=== PATIENT | female | born 1995 | race Caucasian/White ===

== ENCOUNTER 2017-01-16 01:56 | Emergency (ER) | payer MEDICAID, OTHER ==
[~2017-01-16] VITALS: Ht 165.1 cm; Wt 110.0 kg
[~2017-01-16 01:56] MED LIST: ALPR1TAB2 PO; BACTDS PO; CEPH-443 PO; IBUP-1542 PO; NO MEDS TAKEN; RANI150T9 PO; SUCR1TAB PO; [UNRECOGNIZED DRUG - REMARK]
[2017-01-16 02:05] VITALS: Ht 165.1 cm; Wt 110.0 kg
[2017-01-16] MEDS ORDERED: ONDANSETRON 4 MG INJ IV STA (04:21)
[2017-01-16] MEDS ORDERED: FAMOTIDINE 20 MG TAB PO STA (04:21)
--- NOTE | 2017-01-16 04:29 | ERD ---
ER Documentation Chief Complaint Date/Time DATE: 01/16/17 TIME: 04:27 Chief Complaint chest/back pain after vomiting. "Cold virus" for two weeks. HPI Patient is a 21-year-old female who reports epigastric abdominal pain radiating to her chest for the last 2 days. She states that when she eats this causes the pain to be worse and it causes her to have vomiting. She also states that occasionally the pain radiates through to her back. She has also felt feverish with chills but has not checked her temperature. She also complains of a cough with congestion and sputum production which has been yellowish in color. She has had some clear rhinorrhea but no sore throat or otalgia. She denies any sick contacts. Denies any diarrhea, dysuria, hematuria, vaginal bleeding, or vaginal discharge. She states nothing seems to make her symptoms better. She denies having experienced these symptoms before. But then tells me she has had gastritis previously. The remainder of the systems are negative. ROS All systems reviewed and are negative except as per history of present illness. Medications Home Meds Active Scripts Ibuprofen* (Motrin*) 600 Mg Tab, 600 MG PO Q6H Y for PAIN AND OR ELEVATED TEMP, #30 TAB Prov:GEORGIE WILSON NP 06/29/16 Cephalexin* (Keflex*) 500 Mg Capsule, 500 MG PO QID for 10 Days, CAP Prov:GEORGIE WILSON NP 06/29/16 Sulfamethoxazole-Trimethoprim* (Bactrim* DS) 800-160 Mg Tab, 1 TAB PO BID for 10 Days, TAB Prov:GEORGIE WILSON NP 06/29/16 Alprazolam* (Xanax*) 1 Mg Tab, 1 MG PO Q8H Y for ANXIETY, #10 TAB Prov:GEORGIE WILSON NP 05/20/16 Sucralfate (Carafate) 1 G Tablet, 1 GM PO QID, #60 TAB Prov:UMAIR MACIEL 09/22/15 Ranitidine Hcl* (Zantac*) 150 Mg Tablet, 150 MG PO BID Y for GASTROINTESTINAL UPSET, #30 TAB Prov:UMAIR MACIEL 09/22/15 Reported Medications [mom denies meds & allergies] No Conflict Check 2/8/14 [None] No Conflict Check 03/05/13 [No Meds Taken] No Conflict Check 02/14/12 Allergies Allergies: Coded Allergies: No Known Allergy (Unverified , 12/25/13) PMhx/Soc Medical and Surgical Hx: pt denies Surgical Hx History of Surgery: No Anesthesia Reaction: No Hx Neurological Disorder: No Hx Respiratory Disorders: Yes (ASTHMA) Hx Cardiac Disorders: No Hx Psychiatric Problems: Yes (ANXIETY) Hx Miscellaneous Medical Probl: Yes (fatty liver, gastritis) Hx Alcohol Use: No Hx Substance Use: No Hx Tobacco Use: No Smoking Status: Never smoker FmHx Family History: diabetes Physical Exam Vitals Vital Signs Date Time Temp Pulse Resp B/P Pulse Ox O2 Delivery O2 Flow Rate FiO2 01/16/17 05:51 97.5 78 16 109/59 99 Room Air 01/16/17 02:05 97.9 89 16 120/80 96 Physical Exam Const: [] Well-developed well-nourished female sitting in bed in no acute distress Head: Atraumatic normocephalic Eyes: Normal Conjunctiva ENT: Normal External Ears, Nose and Mouth. Neck: Full range of motion..~ No meningismus. Resp: Clear to auscultation bilaterally Cardio: Regular rate and rhythm, no murmurs Abd: Soft, mild tenderness to palpation in epigastric region, no masses, no rebound, no guarding, non distended. Normal bowel sounds Skin: No petechiae or rashes Back: No midline or flank tenderness Ext: No cyanosis, or edema Neur: Awake and alert, oriented 3, GCS of 15, moves all extremities equally Psych: Normal Mood and Affect Result Diagram: 01/16/1740901/16/17409 Results 24 hrs Laboratory Tests Test 01/16/17 04:10 Alanine Aminotransferase (ALT/SGPT) 62IU/L Albumin 4.2g/dl Albumin/Globulin Ratio 1.07 Alkaline Phosphatase 255IU/L Anion Gap 19 Aspartate Amino Transf (AST/SGOT) 46IU/L Basophils # 0.110^3/ul Basophils % 0.6% Beta HCG, Quantitative < 2.4mIU/ml Blood Urea Nitrogen 8mg/dl Calcium Level 9.3mg/dl Carbon Dioxide Level 27mmol/L Chloride Level 102mmol/L Creatinine 0.51mg/dl Direct Bilirubin 0.00mg/dl Eosinophils # 0.210^3/ul Eosinophils % 2.5% Globulin 3.90g/dl Glucose Level 94mg/dl Hematocrit 43.6% Hemoglobin 14.7g/dl Indirect Bilirubin 0.2mg/dl Lipase 73U/L Lymphocytes # 2.810^3/ul Lymphocytes % 33.4% Mean Corpuscular Hemoglobin 28.3pg Mean Corpuscular Hemoglobin Concent 33.7g/dl Mean Corpuscular Volume 84.0fl Mean Platelet Volume 11.6fl Monocytes # 0.710^3/ul Monocytes % 8.5% Neutrophils # 4.710^3/ul Neutrophils % 54.8% Nucleated Red Blood Cells # 0.010^3/ul Nucleated Red Blood Cells % 0.0/100WBC Platelet Count 76973^3/UL Potassium Level 3.9mmol/L Red Blood Count 5.1910^6/ul Red Cell Distribution Width 12.7% Sodium Level 144mmol/L Total Bilirubin 0.2mg/dl Total Protein 8.1g/dl Urine Bilirubin NEGATIVE Urine Clarity CLEAR Urine Color LT. YELLOW Urine Glucose NEGATIVE% Urine Hemoglobin 2+ Urine Ketones NEGATIVE Urine Leukocyte Esterase NEGATIVE Urine Microscopic RBC 5-10/HPF Urine Microscopic WBC 0-2/HPF Urine Nitrite NEGATIVE Urine Specific [place] 1.010 Urine Squamous Epithelial Cells MODERATE Urine Total Protein NEGATIVE Urine Urobilinogen 0.2 E.U./dL Urine pH 6.5 White Blood Count 8.510^3/ul Current Medications Medications (Trade) Dose Ordered Sig/Anu Route PRN Reason Start Time Stop Time Status Last Admin Dose Admin Ondansetron HCl (Zofran Inj) 4 mg ONCE STAT IV 01/16/17 04:21 01/16/17 04:23 DC 01/16/17 04:39 Famotidine (Pepcid) 20 mg ONCE STAT PO 01/16/17 04:21 01/16/17 04:23 DC 01/16/17 04:39 Procedures/MDM Differential includes but is not limited to gastritis, reflux, ulcer, gastroenteritis, nonspecific abdominal pain, atypical chest pain, esophagitis, bronchitis, pneumonia, viral syndrome, upper respiratory illness EKG shows normal sinus rhythm at approximately 85 beats per minutes, patient has mild OR prolongation first-degree, no evidence of acute ischemia noted, no ST-T wave changes noted, no old EKG available for comparison. Chest x-ray does not reveal any acute cardiopulmonary process pulmonary Patient's lab work is within normal limits which includes a CBC CMP lipase hCG. At this time her pain is improved. She appears stable for discharge home. She may follow-up with her primary care physician as an outpatient for reevaluation. Departure Diagnosis: Primary Impression: Abdominal pain Abdominal location: epigastric Qualified Code: R10.13 - Epigastric pain Additional Impressions: Upper respiratory infection, viral Gastritis Gastritis type: unspecified gastritis Chronicity: acute Gastritis bleeding : without bleeding Qualified Code: K29.00 - Acute gastritis without hemorrhage, unspecified gastritis type Condition: Good Patient Instructions: Abdominal Pain, Gastritis Vs. Ulcer Additional Instructions: Please take the medications as prescribed and schedule a follow-up appointment with your primary care physician for reevaluation in approximately 2-3 days. If your abdominal pain continues he may need to schedule an appointment with a photoengraving sketch maker for reevaluation as well. Avoid high fat or spicy foods as this may aggravate your abdominal pain. Return to the emergency department if any time he develop any new or worsening symptoms. KAMI MCKEON Jan 16, 2017 04:29
--- NOTE | 2017-01-16 04:50 | RADRPT ---
PROCEDURE: CHEST - 1 VIEW CLINICAL INDICATION: 21-year-old female with chest/abdominal pain. TECHNIQUE: A single frontal AP view of the chest was performed. The images were reviewed on a PAC S workstation. COMPARISON: Chest x-ray January 10, 2015. FINDINGS: The cardiomediastinal silhouette has a normal appearance. There is no evidence for an infiltrate. T he pulmonary vascularity is within normal limits. There is no evidence for pneumothorax or pneumomed iastinum. The osseous structures are intact. IMPRESSION: No evidence for active cardiopulmonary disease. .Wally Monk MD, MD Date Time Electronically viewed and signed by .Wally Monk MD, MD on 01/16/2017 04:49 .Kisha/
[2017-01-16 04:53] LABS: ADD SCAN DIFF NO
[2017-01-16 05:05] LABS: ALBUMIN 4.2 g/dl (3.3-4.9)
[2017-01-16 05:06] LABS: POTASSIUM 3.9 mmol/L (3.5-5.1)
[2017-01-16 05:08] LABS: BASOPHIL # 0.1 10^3/ul (0.0-0.1); BASOPHILS % 0.6 % (0.0-2.0); BILIRUBIN,INDIRECT 0.2 mg/dl (0-1.1); BILIRUBIN,TOTAL 0.2 mg/dl (0.2-1.3); CREATININE 0.51 mg/dl (0.44-1.00); EOSINOPHILS # 0.2 10^3/ul (0.0-0.5); EOSINOPHILS % 2.5 % (0.0-7.0); HEMATOCRIT 43.6 % (37.0-47.0); HEMOGLOBIN 14.7 g/dl (12.0-16.0); LYMPHOCYTES # 2.8 10^3/ul (0.8-2.9); LYMPHOCYTES % 33.4 % (18.0-55.0); MEAN CORPUSCULAR HEMOGLOBIN 28.3 pg (29.0-33.0); MEAN CORPUSCULAR HGB CONC 33.7 g/dl (32.0-37.0); MEAN PLATELET VOLUME 11.6 fl (7.4-10.4); MONOCYTE # 0.7 10^3/ul (0.3-0.9); MONOCYTES % 8.5 % (0.0-13.0); NEUTROPHIL # 4.7 10^3/ul (1.6-7.5); NEUTROPHILS % 54.8 % (30.0-74.0); PLATELET COUNT 304 10^3/UL (140-415); RED BLOOD COUNT 5.19 10^6/ul (4.20-5.40); RED CELL DISTRIBUTION WIDTH 12.7 % (11.5-14.5); WHITE BLOOD COUNT 8.5 10^3/ul (4.8-10.8)
[2017-01-16 05:09] LABS: ALBUMIN/GLOBULIN RATIO 1.07; CALCIUM 9.3 mg/dl (8.4-10.2); TOTAL PROTEIN 8.1 g/dl (6.1-8.1)
[2017-01-16 05:10] LABS: ADD UMIC YES; URINE BILIRUBIN (Dip) NEGATIVE (NEGATIVE); URINE BLOOD (Dip) 2+ (NEGATIVE); URINE COLOR LT. YELLOW (YELLOW); URINE GLUCOSE (Dip) NEGATIVE (NEGATIVE); URINE KETONES (Dip) NEGATIVE (NEGATIVE); URINE LEUKOCYTE ESTERASE (Dip) NEGATIVE (NEGATIVE); URINE NITRITE (Dip) NEGATIVE (NEGATIVE); URINE TOTAL PROTEIN (Dip) NEGATIVE (NEGATIVE); URINE UROBILINOGEN (Dip) 0.2 E.U./dL (0.1-1.0)
[2017-01-16 05:21] LABS: SQUAMOUS EPITHELIAL CELL,UR MODERATE
[2017-01-16 05:51] VITALS: BP 109/59; PULSE 78; RESP 16; TEMP 97.5
[2017-01-16] MEDS ORDERED: PANT40TA3 PO (06:10)
[2017-01-16] MEDS ORDERED: ONDA4TAB8 PO (06:11)
[2017-01-16] MEDS ORDERED: SUCR1TAB56 PO (06:11)
[2017-01-16] MEDS ORDERED: BENZ100C70 PO (06:12)
[2017-01-16] MEDS ORDERED: HYDR473S12 PO (06:12)
== END 2017-01-16 06:52 | disposition home or self-care (01) ==
LOC: E/R 01:56
DX: R10.13 Epigastric pain (principal); R40.2252 Coma scale, best verbal response, oriented, at arrival to emergency department; J06.9 Acute upper respiratory infection, unspecified; K29.00 Acute gastritis without bleeding; R11.10 Vomiting, unspecified; J45.909 Unspecified asthma, uncomplicated; R40.2362 Coma scale, best motor response, obeys commands, at arrival to emergency department; R40.2142 Coma scale, eyes open, spontaneous, at arrival to emergency department
CPT/HCPCS: 36415; 71010; 80053; 81001; 83690; 84702; 85025; 93005; 96374; J2405; Z7502; Z7610; 81003

== ENCOUNTER 2017-01-20 12:20 | Emergency (ER) | payer OTHER ==
[~2017-01-20] VITALS: Ht 167.6 cm; Wt 110.0 kg
[~2017-01-20 12:20] MED LIST changes: +BENZ100C70 PO; +HYDR473S12 PO; +ONDA4TAB8 PO; +PANT40TA3 PO; +SUCR1TAB56 PO
[2017-01-20 12:46] VITALS: Ht 167.6 cm; Wt 110.0 kg
[2017-01-20] MEDS ORDERED: ONDANSETRON 4 MG INJ IV STA ×2 (14:38→17:05)
[2017-01-20] MEDS ORDERED: SOD CHLORIDE 0.9% 1,000 ML IV STA (14:38)
[2017-01-20 15:02] LABS: ADD SCAN DIFF NO
[2017-01-20 15:19] LABS: ALBUMIN 4.1 g/dl (3.3-4.9)
[2017-01-20 15:20] LABS: POTASSIUM 3.6 mmol/L (3.5-5.1)
[2017-01-20 15:21] LABS: CREATININE 0.52 mg/dl (0.44-1.00)
[2017-01-20 15:22] LABS: ALBUMIN/GLOBULIN RATIO 0.91; BILIRUBIN,INDIRECT 0.9 mg/dl (0-1.1); BILIRUBIN,TOTAL 0.9 mg/dl (0.2-1.3); CALCIUM 9.3 mg/dl (8.4-10.2); TOTAL PROTEIN 8.6 g/dl (6.1-8.1)
[2017-01-20 15:29] LABS: ABNORMAL IP MESSAGE 1; HEMATOCRIT 43.6 % (37.0-47.0); HEMOGLOBIN 14.9 g/dl (12.0-16.0); MEAN CORPUSCULAR HEMOGLOBIN 28.3 pg (29.0-33.0); MEAN CORPUSCULAR HGB CONC 34.2 g/dl (32.0-37.0); MEAN CORPUSCULAR VOLUME 82.9 fl (72.0-104.0); MEAN PLATELET VOLUME 10.9 fl (7.4-10.4); PLATELET COUNT 301 10^3/UL (140-415); RED BLOOD COUNT 5.26 10^6/ul (4.20-5.40); RED CELL DISTRIBUTION WIDTH 12.4 % (11.5-14.5); WHITE BLOOD COUNT 12.1 10^3/ul (4.8-10.8)
[2017-01-20 16:05] LABS: LYMPHOCYTES # 0.6 10^3/ul (0.8-2.9); NEUTROPHIL # 11.5 10^3/ul (1.6-7.5)
--- NOTE | 2017-01-20 16:26 | RADRPT ---
PROCEDURE: Abdominal Ultrasound (right upper quadrant). CLINICAL INDICATION: Abdominal pain TECHNIQUE: Multiple real-time longitudinal and transverse images of the right upper quadrant of th e abdomen were acquired utilizing a curved array transducer. Images were reviewed on a high-resoluti on PACS workstation. COMPARISON: Abdominal ultrasound 09/22/2015 FINDINGS: The liver is normal in size and echogenicity. The portal vein is patent. No focal masses are identi fied. There is no evidence of intra or extrahepatic ductal dilatation. The common bile duct measur es 2.1 mm in diameter. No gallstones or gallbladder wall thickening is seen. The visualized portions of the pancreas are unremarkable with obscuration of the tail of the pancrea s. No free fluid is identified. There is no evidence of right hydronephrosis or renal calcification. The right kidney measures 10.5 cm in length. The visualized portions of the aorta and inferior vena cava are within normal limits. IMPRESSION: 1. Unremarkable right upper quadrant ultrasound. RPTAT: KK .Roge Martínez MD, Date Time Electronically viewed and signed by .Roge Martínez MD, MD on 01/20/2017 16:25 .B/
[2017-01-20 16:43] LABS: URINE BLOOD (Dip) POC Trace-lysed (NEGATIVE)
[2017-01-20] MEDS ORDERED: morphine 4 MG/ML VIAL IV STA (17:05)
[2017-01-20 17:15] LABS: ADD UMIC YES; URINE BILIRUBIN (Dip) NEGATIVE (NEGATIVE); URINE BLOOD (Dip) TRACE (NEGATIVE); URINE GLUCOSE (Dip) NEGATIVE (NEGATIVE); URINE KETONES (Dip) 40 (NEGATIVE); URINE LEUKOCYTE ESTERASE (Dip) 1+ (NEGATIVE); URINE NITRITE (Dip) NEGATIVE (NEGATIVE); URINE TOTAL PROTEIN (Dip) NEGATIVE (NEGATIVE); URINE UROBILINOGEN (Dip) 0.2 E.U./dL (0.1-1.0)
[2017-01-20 17:33] LABS: URINE COLOR YELLOW (YELLOW)
[2017-01-20 17:34] LABS: BACTERIA,URINE MANY; SQUAMOUS EPITHELIAL CELL,UR MANY; URINE RBCS 0-2 /HPF (0)
--- NOTE | 2017-01-20 18:00 | RADRPT ---
PROCEDURE: CT of the abdomen and pelvis without contrast CLINICAL INDICATION: Epigastric and right lower quadrant pain. TECHNIQUE: Spiral CT images through the abdomen and pelvis without the use of contrast. The admin istered radiation dose is CTDI 16.92 and DLP 960.49. One or more of the following dose reduction te chniques were used: automated exposure control, adjustment of the mA and/or kV according to patient size, or use of iterative reconstruction technique. COMPARISON: Right lower quadrant ultrasound from earlier FINDINGS: Lack of oral and intravenous contrast somewhat limits evaluation. Slight dependent atelectasis of the lung bases is seen. No pleural effusion is seen. The liver, spleen, adrenals, kidneys, and pancreas are unremarkable in appearance. No stones are se en in the kidneys, ureters, or bladder. There is subtle haziness of the fat adjacent to the celiac and superior mesenteric arteries, nonspecific. Tiny fat-containing umbilical hernia is seen.. Ther e is no evidence for bowel obstruction, free air, or abscess. The appendix is normal in appearance. there is no evidence for diverticulitis. The bladder, uterus, and adnexal structures are grossly unremarkable. No adenopathy or ascites is seen. No bony abnormality is seen.. IMPRESSION: No definite acute abnormality of the abdomen or pelvis. RPTAT: [facility] Physician Patrice Date Time Electronically viewed and signed by Physician Patrice on 01/20/2017 18:00 LE/
[2017-01-20] MEDS ORDERED: CIPR500T4 PO (18:16)
[2017-01-20] MEDS ORDERED: ACET325T33 PO (18:16)
[2017-01-20] MEDS ORDERED: ONDA4TAB14 PO (18:16)
[2017-01-20 18:36] VITALS: BP 128/62; PULSE 75; RESP 16; TEMP 98.5
--- NOTE | 2017-01-20 18:39 | ERD ---
ER Documentation Chief Complaint Date/Time DATE: 01/20/17 TIME: 18:36 Chief Complaint BROUGHT IN VIA INTAKE DUE TO SOB AND BACK PAIN HPI This is a 21-year-old female with a history of anxiety and stated history of fatty liver presenting to the emergency department complaining of shortness of breath, lower back pain, nausea, vomiting, diarrhea for the past 2 weeks. Patient is complaining of a few episodes of vomiting, epigastric tenderness, and diarrhea. Patient has a history of anxiety and is complaining of shortness of breath. Patient states that she has been seen here on 16 January and was given medications without any relief. Patient states her last menstrual period September 14. Patient denies any symptoms of dysuria. ROS All systems reviewed and are negative except as per history of present illness. Medications Home Meds Active Scripts Acetaminophen* (Tylenol*) 325 Mg Tablet, 650 MG PO Q4H Y for MILD PAIN LEVEL 1-3 , #20 TAB Prov:GRACIELA PACHECO PA-C 01/20/17 Ondansetron (Ondansetron Odt) 4 Mg Tab.rapdis, 4 MG PO Q6H Y for NAUSEA AND/OR VOMITING, #10 TAB Prov:GRACIELA PACHECO PA-C 01/20/17 Ciprofloxacin Hcl* (Ciprofloxacin Hcl*) 500 Mg Tablet, 500 MG PO BID for 7 Days , TAB Prov:GRACIELA PACHECO PA-C 01/20/17 Benzonatate* (Tessalon Perle*) 100 Mg Capsule, 200 MG PO Q8H Y for COUGH, #20 CAP 0 Refills Prov:KAMI MCKEON 01/16/17 Hydrocodone-Chlorpheniramine Polis* (Hydrocodone-Chlorpheniramine Polis*) 10-8MG /5ML Rachael.er.12h, 5 ML PO Q12H Y for COUGH, #60 ML 0 Refills Prov:KAMI MCKEON 01/16/17 Sucralfate* (Carafate*) 1 Gm Tab, 1 GM PO QID for GASTROINTESTINAL UPSET, #90 TAB 0 Refills Prov:KAMI MCKEON 01/16/17 Ondansetron Hcl* (Zofran*) 4 Mg Tablet, 4 MG PO Q6H for NAUSEA AND/OR VOMITING, #30 TAB 0 Refills Prov:KAMI MCKEON 01/16/17 Pantoprazole* (Protonix*) 40 Mg Tablet.dr, 40 MG PO DAILY, #30 TAB 0 Refills Prov:KAMI MCKEON 01/16/17 Ibuprofen* (Motrin*) 600 Mg Tab, 600 MG PO Q6H Y for PAIN AND OR ELEVATED TEMP, #30 TAB Prov:GEORGIE WILSON NP 06/29/16 Cephalexin* (Keflex*) 500 Mg Capsule, 500 MG PO QID for 10 Days, CAP Prov:GEROGIE WILSON ADDING MACHINE OPERATOR 06/29/16 Sulfamethoxazole-Trimethoprim* (Bactrim* DS) 800-160 Mg Tab, 1 TAB PO BID for 10 Days, TAB Prov:GEORGIE WILSON NP 06/29/16 Alprazolam* (Xanax*) 1 Mg Tab, 1 MG PO Q8H Y for ANXIETY, #10 TAB Prov:GEORGIE WILSON NP 05/20/16 Sucralfate (Carafate) 1 G Tablet, 1 GM PO QID, #60 TAB Prov:UMAIR MACIEL 09/22/15 Ranitidine Hcl* (Zantac*) 150 Mg Tablet, 150 MG PO BID Y for GASTROINTESTINAL UPSET, #30 TAB Prov:UMAIR MACIEL 09/22/15 Reported Medications [mom denies meds & allergies] No Conflict Check 12/29/13 [None] No Conflict Check 03/05/13 [No Meds Taken] No Conflict Check 02/14/12 Allergies Allergies: Coded Allergies: No Known Allergy (Unverified , 12/25/13) PMhx/Soc History of Surgery: No Anesthesia Reaction: No Hx Neurological Disorder: No Hx Respiratory Disorders: Yes (ASTHMA) Hx Cardiac Disorders: No Hx Psychiatric Problems: Yes (ANXIETY) Hx Miscellaneous Medical Probl: Yes (fatty liver, gastritis) Hx Alcohol Use: No Hx Substance Use: No Hx Tobacco Use: No Smoking Status: Never smoker Physical Exam Vitals Vital Signs Date Time Temp Pulse Resp B/P Pulse Ox O2 Delivery O2 Flow Rate FiO2 01/20/17 18:36 98.5 75 16 128/62 98 Room Air 01/20/17 12:46 99.9 109 22 151/76 98 Physical Exam GENERAL: well-developed/well-nourished, in no apparent distress, non-toxic appearing HENT: NC/AT, moist mucous membranes EYES: Conjunctiva normal NECK: Supple, no lymphadenopathy PULM: CTA bilaterally, no rales, rhonchi, or wheezing heard CV: Normal S1S2, RRR, good capillary refill GI: Soft, non-distended, tender to palpation epigastric region Normal bowel sounds, no masses or organomegaly felt on exam No gross peritonitis, no bruits Negative Rovsing, negative Gregg, negative McBurney's point, Negative CVAT BACK: No masses EXT: No clubbing, cyanosis, or edema NEURO: Alert and Orientated SKIN: Intact, normal turgor PSYCH: Normal mood and mentation Result Diagram: 01/20/17 1450 01/20/17 1450 Results 24 hrs Laboratory Tests Test 01/20/17 14:50 01/20/17 16:30 01/20/17 16:46 Alanine Aminotransferase (ALT/SGPT) 71IU/L Albumin 4.1g/dl Albumin/Globulin Ratio 0.91 Alkaline Phosphatase 212IU/L Anion Gap 20 Aspartate Amino Transf (AST/SGOT) 62IU/L Blood Urea Nitrogen 9mg/dl Calcium Level 9.3mg/dl Carbon Dioxide Level 25mmol/L Chloride Level 100mmol/L Creatinine 0.52mg/dl Direct Bilirubin 0.00mg/dl Globulin 4.50g/dl Glucose Level 105mg/dl Hematocrit 43.6% Hemoglobin 14.9g/dl Indirect Bilirubin 0.9mg/dl Lipase 51U/L Lymphocytes # 0.610^3/ul Lymphocytes % 5.0% Mean Corpuscular Hemoglobin 28.3pg Mean Corpuscular Hemoglobin Concent 34.2g/dl Mean Corpuscular Volume 82.9fl Mean Platelet Volume 10.9fl Neutrophils # 11.510^3/ul Neutrophils % 95.0% Platelet Count 61138^3/UL Potassium Level 3.6mmol/L Red Blood Count 5.2610^6/ul Red Cell Distribution Width 12.4% Sodium Level 141mmol/L Total Bilirubin 0.9mg/dl Total Protein 8.6g/dl White Blood Count 12.110^3/ul Urine Bacteria MANY Urine Bilirubin NEGATIVE Urine Clarity CLOUDY Urine Color YELLOW Urine Glucose NEGATIVE% Urine Hemoglobin TRACE Urine Ketones 40 Urine Leukocyte Esterase 1+ Urine Microscopic RBC 0-2/HPF Urine Microscopic WBC 10-25/HPF Urine Nitrite NEGATIVE Urine Specific [place] 1.020 Urine Squamous Epithelial Cells MANY Urine Total Protein NEGATIVE Urine Urobilinogen 0.2 E.U./dL Urine pH 6.0 Bedside Urine Blood Trace-lysed Bedside Urine Glucose (UA) Negative Bedside Urine Ketones (LAB) 2+ Bedside Urine Leukocyte Esterase (L 1+ Bedside Urine Nitrite (LAB) Negative Bedside Urine Protein (LAB) Negative Bedside Urine pH (LAB) 5.5 Current Medications Medications (Trade) Dose Ordered Sig/Anu Route PRN Reason Start Time Stop Time Status Last Admin Dose Admin Sodium Chloride (NS) 1,000 ml @ 1,000 mls/hr Q1H STAT IV 01/20/17 14:38 01/20/17 15:37 DC 01/20/17 14:56 Ondansetron HCl (Zofran Inj) 4 mg ONCE STAT IV 01/20/17 14:38 01/20/17 14:40 DC 01/20/17 14:56 Morphine Sulfate (morphine) 4 mg ONCE STAT IV 01/20/17 17:05 01/20/17 17:06 DC 01/20/17 17:20 Ondansetron HCl (Zofran Inj) 4 mg ONCE STAT IV 01/20/17 17:05 01/20/17 17:06 DC 01/20/17 17:20 Procedures/MDM This is a 21-year-old female with history of anxiety presenting with multiple complaints shortness of breath, epigastric pain, diarrhea, vomiting presenting to the emergency department. Differentials include but not limited to gastroenteritis, gastritis, UTI and other acute abdominal conditions. Patient was seen here on the and was given Carafate and Protonix, without any relief. Patient's new complaint since her last visit was diarrhea. Patient states that her symptoms remained constant. IV access is established. Lab work was drawn. CBC did not show any evidence of significant leukocytosis or anemia. White count was elevated around 12.1 which is likely due to stress reaction. CMP did not show any evidence of significant renal, liver, or electrolyte abnormalities. Lipase was normal. UA did not show any evidence of hemoglobin, patient had +1 leukocyte esterase with 10-25 white count. Patient will be treated for a urinary tract infection outpatient. I have low suspicion for any pyelonephritis, nephrolithiasis. I have reviewed patient's past chart and she had a full workup on 01/16/17 including EKG and chest x-ray which were unremarkable. Patient's lab work was unremarkable a few days ago. A CT of the abdomen and pelvis without contrast was done and radiologist stated: No definite acute abnormality of the abdomen or pelvis. A gallbladder ultrasound was done in the ED and was unremarkable. I will low suspicion for cholecystitis, cholangitis, pancreatitis. Patient's lungs are clear to auscultation bilaterally, low suspicion for pneumonia. In the ED patient was given 1 L fluids, morphine and Zofran. I have reassessed her and she was doing a lot better. Patient appears to be clinically anxious. I have discussed that this is likely due to a viral illness with a urinary tract infection. A prescription for Cipro was provided I discussed the patient to follow-up with her primary care physician and to return to the emergency room for any worsening signs or symptoms. She understands and agrees with this plan. Departure Diagnosis: Primary Impression: Shortness of breath Additional Impressions: Low back pain Chronicity: acute Back pain laterality: unspecified Sciatica presence: without sciatica Qualified Code: M54.5 - Acute low back pain without sciatica , unspecified back pain laterality Nausea vomiting and diarrhea Condition: Stable Patient Instructions: Understanding Urinary Tract Infections (UTIs), Coping with Shortness of Breath: Controlling Stress, Diet, Vomiting Or Diarrhea [6Yr- Adult], Vomiting And Diarrhea, Nonspecific (Adult) Referrals: DOCTOR,NOT ON STAFF (PCP) [facility] YOU HAVE RECEIVED A MEDICAL SCREENING EXAM AND THE RESULTS INDICATE THAT YOU DO NOT HAVE A CONDITION THAT REQUIRES URGENT TREATMENT IN THE EMERGENCY DEPARTMENT. FURTHER EVALUATION AND TREATMENT OF YOUR CONDITION CAN WAIT UNTIL YOU ARE SEEN IN YOUR DOCTORS OFFICE WITHIN THE NEXT 1-2 DAYS. IT IS YOUR RESPONSIBILITY TO MAKE AN APPOINTMENT FOR FOLOW-UP CARE. IF YOU HAVE A PRIMARY DOCTOR --you should call your primary doctor and schedule an appointment IF YOU DO NOT HAVE A PRIMARY DOCTOR YOU CAN CALL OUR PHYSICIAN REFERRAL HOTLINE AT IF YOU CAN NOT AFFORD TO SEE A PHYSICIAN YOU CAN CHOSE FROM THE FOLLOWING [facility] [address] [facility] [address] [facility] [address] [facility] [address] [facility] [address] [facility]. [facility] [address] Additional Instructions: FOLLOW UP WITH YOUR PRIMARY CARE PHYSICIAN TOMORROW.Return to this facility if you are not improving as expected. Take all medicines as directed. Return to this facility if you are not improving as expected. GRACIELA PACHECO PA-C Jan 20, 2017 18:39
== END 2017-01-20 18:37 | disposition home or self-care (01) ==
LOC: FTE 12:20
DX: R06.02 Shortness of breath (principal); M54.5 Low back pain; R11.2 Nausea with vomiting, unspecified; R19.7 Diarrhea, unspecified; J45.909 Unspecified asthma, uncomplicated
CPT/HCPCS: 36415; 74176; 76705; 80053; 81001; 81003; 83690; 85025; 96361; 96374; 96375; 96376; J2270; J2405; J7030; Z7502

== ENCOUNTER 2017-04-20 22:19 | Emergency (ER) | payer OTHER ==
[~2017-04-20] VITALS: Ht 167.6 cm; Wt 113.0 kg
[~2017-04-20 22:19] MED LIST changes: +ACET325T33 PO; +CIPR500T4 PO; +ONDA4TAB14 PO
[2017-04-20 22:33] VITALS: Ht 167.6 cm; Wt 113.0 kg
[2017-04-20] MEDS ORDERED: ONDANSETRON (ODT) 4 MG TAB ODT STA (22:59)
--- NOTE | 2017-04-20 23:21 | ERD ---
ER Documentation Chief Complaint Date/Time DATE: 04/20/17 TIME: 23:10 Chief Complaint epigastric pain w/ vomiting x 2 days HPI 21-year-old presents here in emergency department presents here in emergency department for complaint of epigastric pain and vomiting for 2 days. Patient also has diarrhea episodes. Patient does not have any blood in stool or black stool. Patient does not have any blood in the vomit. Patient does not have any sick contacts. Patient describes the pain as sharp pain, succession scale, is accompanied with vomiting and diarrhea. Patient denies any flank pain. Patient denies any fever or chills. ROS All systems reviewed and are negative except as per history of present illness. Medications Home Meds Active Scripts Acetaminophen* (Tylenol*) 325 Mg Tablet, 650 MG PO Q4H Y for MILD PAIN LEVEL 1-3 , #20 TAB Prov:GRACIELA PACHECO PA-C 01/20/17 Ondansetron (Ondansetron Odt) 4 Mg Tab.rapdis, 4 MG PO Q6H Y for NAUSEA AND/OR VOMITING, #10 TAB Prov:GRACIELA PACHECO PA-C 01/20/17 Ciprofloxacin Hcl* (Ciprofloxacin Hcl*) 500 Mg Tablet, 500 MG PO BID for 7 Days , TAB Prov:GRACIELA PACHECO PA-C 01/20/17 Benzonatate* (Tessalon Perle*) 100 Mg Capsule, 200 MG PO Q8H Y for COUGH, #20 CAP 0 Refills Prov:KAMI MCKEON 01/16/17 Hydrocodone-Chlorpheniramine Polis* (Hydrocodone-Chlorpheniramine Polis*) 10-8MG /5ML Rachael.er.12h, 5 ML PO Q12H Y for COUGH, #60 ML 0 Refills Prov:KAMI MCKEON 01/16/17 Sucralfate* (Carafate*) 1 Gm Tab, 1 GM PO QID for GASTROINTESTINAL UPSET, #90 TAB 0 Refills Prov:KAMI MCKEON 01/16/17 Ondansetron Hcl* (Zofran*) 4 Mg Tablet, 4 MG PO Q6H for NAUSEA AND/OR VOMITING, #30 TAB 0 Refills Prov:KAMI MCKEON 01/16/17 Pantoprazole* (Protonix*) 40 Mg Tablet.dr, 40 MG PO DAILY, #30 TAB 0 Refills Prov:KAMI MCKEON 01/16/17 Ibuprofen* (Motrin*) 600 Mg Tab, 600 MG PO Q6H Y for PAIN AND OR ELEVATED TEMP, #30 TAB Prov:GEORGIE WILSON PLASTIC DUPLICATOR 06/29/16 Cephalexin* (Keflex*) 500 Mg Capsule, 500 MG PO QID for 10 Days, CAP Prov:GEORGIE WILSON PLASTIC DUPLICATOR 06/29/16 Sulfamethoxazole-Trimethoprim* (Bactrim* DS) 800-160 Mg Tab, 1 TAB PO BID for 10 Days, TAB Prov:GEORGIE WILSON PLASTIC DUPLICATOR 06/29/16 Alprazolam* (Xanax*) 1 Mg Tab, 1 MG PO Q8H Y for ANXIETY, #10 TAB Prov:GEORGIE WILSON NP 05/20/16 Sucralfate (Carafate) 1 G Tablet, 1 GM PO QID, #60 TAB Prov:UMAIR MACIEL 09/22/15 Ranitidine Hcl* (Zantac*) 150 Mg Tablet, 150 MG PO BID Y for GASTROINTESTINAL UPSET, #30 TAB Prov:UMAIR MACIEL 09/22/15 Reported Medications [mom denies meds & allergies] No Conflict Check 12/29/13 [None] No Conflict Check 03/05/13 [No Meds Taken] No Conflict Check 02/14/12 Allergies Allergies: Coded Allergies: No Known Allergy (Unverified , 12/25/13) PMhx/Soc Medical and Surgical Hx: pt denies Surgical Hx History of Surgery: No Anesthesia Reaction: No Hx Neurological Disorder: No Hx Respiratory Disorders: Yes (ASTHMA) Hx Cardiac Disorders: No Hx Psychiatric Problems: Yes (ANXIETY) Hx Miscellaneous Medical Probl: Yes (fatty liver, gastritis) Hx Alcohol Use: No Hx Substance Use: No Hx Tobacco Use: No FmHx Family History: No coronary disease, No diabetes, No other Physical Exam Vitals Vital Signs Date Time Temp Pulse Resp B/P Pulse Ox O2 Delivery O2 Flow Rate FiO2 04/20/17 22:33 98.2 103 20 135/63 98 Physical Exam GENERAL: The patient is well developed and appropriate for usual state of health, in no apparent distress. CHEST: Clear to auscultation bilaterally. There are no rales, wheezes or rhonchi. HEART: Regular rate and rhythm. No murmurs, clicks, rubs or gallops. No S3 or S4. ABDOMEN: Soft, nontender and nondistended. Good bowel sounds. No rebound or guarding. No gross peritonitis. No gross organomegaly or masses. No Gregg sign or McBurney point tenderness. BACK: No midline or flank tenderness. EXTREMITIES: Equal pulses bilaterally. There is no peripheral clubbing, cyanosis or edema. No focal swelling or erythema. Full range of motion. Grossly neurovascularly intact. NEURO: Alert and oriented. Cranial nerves 2-12 intact. Motor strength in all 4 extremities with 5/5 strength. Sensation grossly intact. Normal speech and gait. SKIN: There is no apparent rash or petechia. The skin is warm and dry. HEMATOLOGIC AND LYMPHATIC: There is no evidence of excessive bruising or lymphedema. No gross cervical, axillary, or inguinal lymphadenopathy. Result Diagram: 04/20/17233004/20/172330 Results 24 hrs Laboratory Tests Test 04/20/17 23:31 04/20/17 23:41 White Blood Count 10.110^3/ul Red Blood Count 4.9110^6/ul Hemoglobin 14.2g/dl Hematocrit 41.8% Mean Corpuscular Volume 85.1fl Mean Corpuscular Hemoglobin 28.9pg Mean Corpuscular Hemoglobin Concent 34.0g/dl Red Cell Distribution Width 12.7% Platelet Count 07710^3/UL Mean Platelet Volume 11.0fl Neutrophils % 62.8% Lymphocytes % 27.4% Monocytes % 8.3% Eosinophils % 0.9% Basophils % 0.2% Nucleated Red Blood Cells % 0.0/100WBC Neutrophils # 6.410^3/ul Lymphocytes # 2.810^3/ul Monocytes # 0.810^3/ul Eosinophils # 0.110^3/ul Basophils # 0.010^3/ul Nucleated Red Blood Cells # 0.010^3/ul Sodium Level 141mmol/L Potassium Level 3.9mmol/L Chloride Level 103mmol/L Carbon Dioxide Level 32mmol/L Anion Gap 10 Blood Urea Nitrogen 9mg/dl Creatinine 0.60mg/dl Glucose Level 78mg/dl Calcium Level 9.7mg/dl Total Bilirubin 0.3mg/dl Direct Bilirubin 0.00mg/dl Indirect Bilirubin 0.3mg/dl Aspartate Amino Transf (AST/SGOT) 59IU/L Alanine Aminotransferase (ALT/SGPT) 92IU/L Alkaline Phosphatase 198IU/L Total Protein 8.0g/dl Albumin 4.7g/dl Globulin 3.30g/dl Albumin/Globulin Ratio 1.42 Lipase 66U/L Urine Color LT. YELLOW Urine Clarity CLEAR Urine pH 6.0 Urine Specific [place] 1.010 Urine Ketones NEGATIVE Urine Nitrite NEGATIVE Urine Bilirubin NEGATIVE Urine Urobilinogen 0.2 E.U./dL Urine Leukocyte Esterase NEGATIVE Urine Microscopic RBC 0-2/HPF Urine Microscopic WBC 0-2/HPF Urine Squamous Epithelial Cells FEW Urine Bacteria FEW Urine Hemoglobin 1+ Urine Glucose NEGATIVE% Urine Total Protein NEGATIVE Current Medications Medications (Trade) Dose Ordered Sig/Anu Route PRN Reason Start Time Stop Time Status Last Admin Dose Admin Ondansetron HCl (Zofran Odt) 4 mg ONCE STAT ODT 04/20/17 22:59 04/20/17 23:01 DC 04/20/17 23:20 Patient was given Zofran here in the emergency department. After treatment, patient was able to tolerate po fluids here in the emergency department without any vomiting. There is no signs and symptoms of dehydration. PROCEDURE: ULTRASOUND LIMITED ABDOMEN CLINICAL INDICATION: 21-year-old female with abdominal pain. TECHNIQUE: Multiple sonographic of the right upper quadrant of the abdomen were obtained. The images were reviewed on a PACS workstation. COMPARISON: CT abdomen/pelvis January 20, 2017. FINDINGS: The pancreas is partially visualized and is otherwise without abnormal echogenicity. The liver displays normal echogenicity. The liver measures 16.1 cm in length. No evidence of intrahepatic biliary ductal dilatation is seen. The portal and hepatic veins are unremarkable. The gallbladder demonstrates no wall thickening, sludge, nor stones. No pericholecystic fluid is seen. The common bile duct measures 4.5 mm and is not dilated. The right kidney displays normal echogenicity. The right kidney measures 11.9 cm in maximal length. No caliectasis or hydronephrosis is seen. No free fluid is seen. IMPRESSION: Unremarkable right upper quadrant abdominal ultrasound. .Wally Monk MD, Date Time Electronically viewed and signed by .Wally Monk MD, MD on 04/21/2017 00:27 .M/ CC: GEORGIE WILSON NP Procedures/MDM Medical Decision Making: Patient's epigastric pain and vomiting and diarrhea most active consistent with viral gastroenteritis. Can be early symptoms of gastritis. LFTs are normal, lipase is normal, no pancreatitis, bladder stones noted, no symptoms of cholecystitis.. There is low suspicion for abdominal emergencies at this time. Patients abdominal exam is normal at this time. Patients radiology exam does not show any abdominal emergencies at this time. There is low suspicion for appendicitis, cholecystitis, abdominal aortic aneurysms or peritonitis at this time. There is low suspicion for sepsis. Patient appears well and is hemodynamically stable. Disposition: Home. Condition: Stable Prescription Zofran, Bentyl, ibuprofen, omeprazole, Instructions: Patient is advised to take medications as prescribed. Patient is advised to rest, increase fluid intake and do brat diet for next 1-2 days and progress as tolerated. Patient is advised that if symptoms are worse, severe abdominal pain, uncontrolled vomiting, high fever, severe flank pain, worst signs and symptoms, to return to the emergency department immediately. Otherwise, patient can follow up with primary care doctor in 5-7 days. Departure Diagnosis: Primary Impression: Viral gastroenteritis Condition: Stable Patient Instructions: Gastroenteritis, Viral (6Y-Adult) Additional Instructions: Patient is advised to take medications as prescribed. Patient is advised to rest , increase fluid intake and do brat diet for next 1-2 days and progress as tolerated. Patient is advised that if symptoms are worse, severe abdominal pain , uncontrolled vomiting, high fever, severe flank pain, worst signs and symptoms , to return to the emergency department immediately. Otherwise, patient can follow up with primary care doctor in 5-7 days. GEORGIE WILSON NP April 20, 2017 23:21
[2017-04-20 23:47] LABS: ADD SCAN DIFF NO
[2017-04-20 23:49] LABS: BASOPHILS % 0.2 % (0.0-2.0); EOSINOPHILS # 0.1 10^3/ul (0.0-0.5); EOSINOPHILS % 0.9 % (0.0-7.0); HEMATOCRIT 41.8 % (37.0-47.0); HEMOGLOBIN 14.2 g/dl (12.0-16.0); LYMPHOCYTES # 2.8 10^3/ul (0.8-2.9); LYMPHOCYTES % 27.4 % (18.0-55.0); MEAN CORPUSCULAR HEMOGLOBIN 28.9 pg (29.0-33.0); MEAN CORPUSCULAR VOLUME 85.1 fl (72.0-104.0); MONOCYTE # 0.8 10^3/ul (0.3-0.9); MONOCYTES % 8.3 % (0.0-13.0); NEUTROPHIL # 6.4 10^3/ul (1.6-7.5); NEUTROPHILS % 62.8 % (30.0-74.0); PLATELET COUNT 256 10^3/UL (140-415); RED BLOOD COUNT 4.91 10^6/ul (4.20-5.40); RED CELL DISTRIBUTION WIDTH 12.7 % (11.5-14.5); WHITE BLOOD COUNT 10.1 10^3/ul (4.8-10.8)
[2017-04-21 00:07] LABS: ALBUMIN 4.7 g/dl (3.3-4.9); ALBUMIN/GLOBULIN RATIO 1.42; BILIRUBIN,INDIRECT 0.3 mg/dl (0-1.1); BILIRUBIN,TOTAL 0.3 mg/dl (0.2-1.3); CALCIUM 9.7 mg/dl (8.4-10.2); CREATININE 0.6 mg/dl (0.44-1.00); POTASSIUM 3.9 mmol/L (3.5-5.1)
[2017-04-21 00:11] LABS: ADD UMIC YES; URINE BILIRUBIN (Dip) NEGATIVE (NEGATIVE); URINE BLOOD (Dip) 1+ (NEGATIVE); URINE COLOR LT. YELLOW (YELLOW); URINE GLUCOSE (Dip) NEGATIVE (NEGATIVE); URINE KETONES (Dip) NEGATIVE (NEGATIVE); URINE LEUKOCYTE ESTERASE (Dip) NEGATIVE (NEGATIVE); URINE NITRITE (Dip) NEGATIVE (NEGATIVE); URINE TOTAL PROTEIN (Dip) NEGATIVE (NEGATIVE); URINE UROBILINOGEN (Dip) 0.2 E.U./dL (0.1-1.0)
--- NOTE | 2017-04-21 00:27 | RADRPT ---
PROCEDURE: ULTRASOUND LIMITED ABDOMEN CLINICAL INDICATION: 21-year-old female with abdominal pain. TECHNIQUE: Multiple sonographic of the right upper quadrant of the abdomen were obtained. The imag es were reviewed on a PACS workstation. COMPARISON: CT abdomen/pelvis January 20, 2017. FINDINGS: The pancreas is partially visualized and is otherwise without abnormal echogenicity. The liver displays normal echogenicity. The liver measures 16.1 cm in length. No evidence of intrah epatic biliary ductal dilatation is seen. The portal and hepatic veins are unremarkable. The gallbladder demonstrates no wall thickening, sludge, nor stones. No pericholecystic fluid is see n. The common bile duct measures 4.5 mm and is not dilated. The right kidney displays normal echogenicity. The right kidney measures 11.9 cm in maximal length. No caliectasis or hydronephrosis is seen. No free fluid is seen. IMPRESSION: Unremarkable right upper quadrant abdominal ultrasound. .Wally Monk MD, Date Time Electronically viewed and signed by .Wally Monk MD, on 04/21/2017 00:27 .M/
[2017-04-21 00:35] LABS: BACTERIA,URINE FEW; SQUAMOUS EPITHELIAL CELL,UR FEW; URINE RBCS 0-2 /HPF (0)
[2017-04-21] MEDS ORDERED: DICY10CA60 PO (01:20)
[2017-04-21] MEDS ORDERED: IBUP-1542 PO (01:20)
[2017-04-21] MEDS ORDERED: ONDA4TAB14 PO (01:20)
[2017-04-21 01:30] VITALS: BP 129/70; PULSE 71; RESP 17; TEMP 98
== END 2017-04-21 01:31 | disposition home or self-care (01) ==
LOC: FTE 22:19
DX: A08.4 Viral intestinal infection, unspecified (principal); J45.909 Unspecified asthma, uncomplicated
CPT/HCPCS: 76705; 80053; 81001; 83690; 85025; Z7610; 36415

== ENCOUNTER 2017-10-07 23:55 | Emergency (ER) | payer OTHER ==
[~2017-10-07] VITALS: Ht 170.2 cm; Wt 115.9 kg
[~2017-10-07 23:55] MED LIST changes: +DICY10CA60 PO
[2017-10-08 00:06] VITALS: Ht 170.2 cm; Wt 115.9 kg
[2017-10-08] MEDS ORDERED: ONDANSETRON (ODT) 4 MG TAB ODT STA (01:16)
[2017-10-08] MEDS ORDERED: LIDOCAINE/MYLANTA 40 ML BTL PO ONE (01:30)
--- NOTE | 2017-10-08 01:35 | ERD ---
ER Documentation Chief Complaint Chief Complaint cough x 3 days HPI 22-year-old female who presents emergency department for productive cough for 3 day, epigastric pain, vomiting. Stated that she vomited thrice with none bloody and non-bilious emesis in the past 24 hours. LMP: Stated that she is on it at this time. A0. Denies headache, dizziness, blurry vision, change in vision, throat pain, neck pain, difficulty swallowing, shoulder pain, chest pain, back pain, difficulty breathing when lying flat, loss of appetite, constipation, diarrhea, urinary symptoms, loss of bowel bladder control, changes in bowel bladder habits, , possibility of being , vaginal bleeding, difficulty walking, numbness or tingling sensation, recent long travel, recent posterior to any illness, recent antibiotic use in the last 3 months, fever, chills. No known drug allergies. Past medical history of asthma, liver disease. No surgical history. Medication: Pro-air. Social: Not working at this time. Denies smoking, use of alcoholic beverages, use of illegal drugs. ROS All systems reviewed and are negative except as per history of present illness. Medications Home Meds Active Scripts Famotidine* (Pepcid*) 20 Mg Tablet, 20 MG PO DAILY for 30 Days, TAB Prov:NINFA ASH 10/08/17 Prednisone* (Prednisone*) 20 Mg Tab, 40 MG PO DAILY for 5 Days, TAB Prov:MIHIRJAMELHANK Verito 10/08/17 Albuterol Sulfate* (Proair HFA*) 8.5 Gm Hfa.aer.ad, 2 PUFF INH Q4, #1 INHALER Prov:NINFA ASH Verito 10/08/17 Acetaminophen* (Tylophen*) 500 Mg Capsule, 1 CAP PO Q6H Y for PAIN AND OR ELEVATED TEMP, #20 CAP Prov:SARKISDESHAWNJAMELHANK Verito 10/08/17 Sulfamethoxazole/Trimethoprim* (Bactrim Ds* Tablet) 1 Each Tablet, 1 TAB PO BID for 7 Days, #14 TAB Prov:MIHIRJAMELAHNK Sellers 10/08/17 Ondansetron (Ondansetron Odt) 4 Mg Tab.rapdis, 4 MG PO Q8 Y for NAUSEA AND/OR VOMITING, #30 TAB Prov:GEORGIE WILSON NP 04/21/17 Dicyclomine Hcl* (Bentyl*) 10 Mg Capsule, 10 MG PO QID, #20 CAP Prov:GEORGIE WILSON NP 04/21/17 Ibuprofen* (Motrin*) 600 Mg Tab, 600 MG PO Q6H Y for PAIN AND OR ELEVATED TEMP, #30 TAB Prov:GEORGIE WILSON NP 04/21/17 Acetaminophen* (Tylenol*) 325 Mg Tablet, 650 MG PO Q4H Y for MILD PAIN LEVEL 1-3 , #20 TAB Prov:GRACIELA PACHECOC 01/20/17 Ondansetron (Ondansetron Odt) 4 Mg Tab.rapdis, 4 MG PO Q6H Y for NAUSEA AND/OR VOMITING, #10 TAB Prov:GRACIELA PACHECOC 01/20/17 Ciprofloxacin Hcl* (Ciprofloxacin Hcl*) 500 Mg Tablet, 500 MG PO BID for 7 Days , TAB Prov:GRACIELA PACHECOC 01/20/17 Benzonatate* (Tessalon Perle*) 100 Mg Capsule, 200 MG PO Q8H Y for COUGH, #20 CAP 0 Refills Prov:KAMI MCKEON 01/16/17 Hydrocodone-Chlorpheniramine Polis* (Hydrocodone-Chlorpheniramine Polis*) 10-8MG /5ML Rachael.er.12h, 5 ML PO Q12H Y for COUGH, #60 ML 0 Refills Prov:KAMI MCKEON 01/16/17 Sucralfate* (Carafate*) 1 Gm Tab, 1 GM PO QID for GASTROINTESTINAL UPSET, #90 TAB 0 Refills Prov:KAMI MCKEON 01/16/17 Ondansetron Hcl* (Zofran*) 4 Mg Tablet, 4 MG PO Q6H for NAUSEA AND/OR VOMITING, #30 TAB 0 Refills Prov:KAMI MCKEON 01/16/17 Pantoprazole* (Protonix*) 40 Mg Tablet.dr, 40 MG PO DAILY, #30 TAB 0 Refills Prov:KAMI MCKEON 01/16/17 Ibuprofen* (Motrin*) 600 Mg Tab, 600 MG PO Q6H Y for PAIN AND OR ELEVATED TEMP, #30 TAB Prov:GEORGIE WILSON NP 06/29/16 Cephalexin* (Keflex*) 500 Mg Capsule, 500 MG PO QID for 10 Days, CAP Prov:GEORGIE WILSON MANAGER MAINTENANCE 06/29/16 Sulfamethoxazole-Trimethoprim* (Bactrim* DS) 800-160 Mg Tab, 1 TAB PO BID for 10 Days, TAB Prov:GEORGIE WILSON MANAGER MAINTENANCE 06/29/16 Alprazolam* (Xanax*) 1 Mg Tab, 1 MG PO Q8H Y for ANXIETY, #10 TAB Prov:GEORGIE WILSON MANAGER MAINTENANCE 05/20/16 Sucralfate (Carafate) 1 G Tablet, 1 GM PO QID, #60 TAB Prov:UMAIR MACIEL 09/22/15 Ranitidine Hcl* (Zantac*) 150 Mg Tablet, 150 MG PO BID Y for GASTROINTESTINAL UPSET, #30 TAB Prov:UMAIR MACIEL 09/22/15 Reported Medications [mom denies meds & allergies] No Conflict Check 12/29/13 [None] No Conflict Check 03/05/13 [No Meds Taken] No Conflict Check 02/14/12 Allergies Allergies: Coded Allergies: No Known Allergy (Unverified , 10/08/17) PMhx/Soc History of Surgery: No Anesthesia Reaction: No Hx Neurological Disorder: No Hx Respiratory Disorders: Yes (ASTHMA) Hx Cardiac Disorders: No Hx Psychiatric Problems: Yes (ANXIETY) Hx Miscellaneous Medical Probl: Yes (fatty liver, gastritis) Hx Alcohol Use: No Hx Substance Use: No Hx Tobacco Use: No Smoking Status: Never smoker Physical Exam Vitals Vital Signs Date Time Temp Pulse Resp B/P Pulse Ox O2 Delivery O2 Flow Rate FiO2 10/08/17 00:06 98.4 90 20 133/72 98 Physical Exam Const: [] Head: Atraumatic Eyes: Normal Conjunctiva ENT: Normal External Ears, Nose and Mouth. Neck: Full range of motion..~ No meningismus. Resp: Clear to auscultation bilaterally Cardio: Regular rate and rhythm, no murmurs Abd: Soft, non distended. Normal bowel sounds. Right upper abdominal tenderness and light and deep palpation during inspiration. Skin: No petechiae or rashes Back: No midline or flank tenderness Ext: No cyanosis, or edema Neur: Awake and alert Psych: Normal Mood and Affect Result Diagram: 10/08/17 0140 10/08/17 0140 Results 24 hrs Laboratory Tests Test 10/08/17 01:40 White Blood Count 10.810^3/ul Red Blood Count 4.8910^6/ul Hemoglobin 14.2g/dl Hematocrit 41.0% Mean Corpuscular Volume 83.8fl Mean Corpuscular Hemoglobin 29.0pg Mean Corpuscular Hemoglobin Concent 34.6g/dl Red Cell Distribution Width 12.0% Platelet Count 65087^3/UL Mean Platelet Volume 10.8fl Neutrophils % 56.6% Lymphocytes % 33.2% Monocytes % 7.1% Eosinophils % 2.4% Basophils % 0.4% Nucleated Red Blood Cells % 0.0/100WBC Neutrophils # 6.110^3/ul Lymphocytes # 3.610^3/ul Monocytes # 0.810^3/ul Eosinophils # 0.310^3/ul Basophils # 0.010^3/ul Nucleated Red Blood Cells # 0.010^3/ul Urine Color YELLOW Urine Clarity SLIGHTLY CLOUDY Urine pH 5.0 Urine Specific [place] 1.019 Urine Ketones NEGATIVEmg/dL Urine Nitrite NEGATIVEmg/dL Urine Bilirubin NEGATIVEmg/dL Urine Urobilinogen NEGATIVEmg/dL Urine Leukocyte Esterase TRACELeu/ul Urine Microscopic RBC 2/HPF Urine Microscopic WBC 3/HPF Urine Squamous Epithelial Cells MODERATE/HPF Urine Bacteria MODERATE/HPF Urine Hemoglobin 3+mg/dL Urine Glucose NEGATIVEmg/dL Urine Total Protein NEGATIVEmg/dl Sodium Level 141mmol/L Potassium Level 4.0mmol/L Chloride Level 105mmol/L Carbon Dioxide Level 27mmol/L Anion Gap 13 Blood Urea Nitrogen 12mg/dl Creatinine 0.65mg/dl Glucose Level 99mg/dl Calcium Level 9.4mg/dl Total Bilirubin 0.2mg/dl Direct Bilirubin 0.00mg/dl Indirect Bilirubin 0.2mg/dl Aspartate Amino Transf (AST/SGOT) 35IU/L Alanine Aminotransferase (ALT/SGPT) 63IU/L Alkaline Phosphatase 223IU/L Total Protein 7.9g/dl Albumin 4.1g/dl Globulin 3.80g/dl Albumin/Globulin Ratio 1.07 Amylase Level 80U/L Lipase 94U/L Serum HCG, Qualitative NEGATIVE Current Medications Medications (Trade) Dose Ordered Sig/Anu Route PRN Reason Start Time Stop Time Status Last Admin Dose Admin Ondansetron HCl (Zofran Odt) 4 mg ONCE STAT ODT 10/08/17 01:16 10/08/17 01:20 DC 10/08/17 01:35 Miscellaneous Medication (Gi Cocktail (2)) 40 ml ONCE ONCE PO 10/08/17 01:30 10/08/17 01:31 DC 10/08/17 01:35 Procedures/MDM 22-year-old female who presents emergency department for productive cough for 3 day, epigastric pain, vomiting. Stated that she vomited thrice with none bloody and non-bilious emesis in the past 24 hours. LMP: Stated that she is on it at this time. A0. Denies headache, dizziness, blurry vision, change in vision, throat pain, neck pain, difficulty swallowing, shoulder pain, chest pain, back pain, difficulty breathing when lying flat, loss of appetite, constipation, diarrhea, urinary symptoms, loss of bowel bladder control, changes in bowel bladder habits, , possibility of being , vaginal bleeding, difficulty walking, numbness or tingling sensation, recent long travel, recent posterior to any illness, recent antibiotic use in the last 3 months, fever, chills. No known drug allergies. Past medical history of asthma, liver disease. No surgical history. Medication: Pro-air. Social: Not working at this time. Denies smoking, use of alcoholic beverages, use of illegal drugs. Disease process was explained to the patient and family member. They both verbalized understanding and agreed with the diagnostic test, treatment, plan of care, follow-up care. Chest x-ray: No evidence for active cardiopulmonary disease. Abdominal ultrasound/right upper: Unremarkable abdominal ultrasound. Blood works: Negative. HCG qualitative: Negative. POC urine : Negative. Abdominal ultrasound/right upper: Treatment: GI cocktail. Zofran. P.o. challenge. Reevaluation: Denies headache, dizziness, blurred vision, neck pain, shoulder pain, chest pain, back pain, abdominal pain, nausea, vomiting. Lung sounds are clear to auscultation. There is no right upper/right lower/epigastric/left upper/left lower abdominal tenderness on light and deep palpation. Negative on Rovsing sign. Negative Vincenzo sign. Negative and psoas sign. Jump 10 times without developing right lower abdominal pain. Differential diagnosis: Pancreatitis versus cholecystitis versus pneumonia versus asthma exacerbation versus asthmatic bronchitis versus diverticulitis versus gastritis versus upper respiratory infection versus viral gastroenteritis versus viral syndrome Final diagnosis: Acute bronchitis. Prescription: Bactrim DS. Pro-air. Prednisone. Pepcid. Tylenol. Follow-up with PCP in the next 24-48 hours. Come back here in the emergency department for any new symptoms or any worsening of symptoms. All questions and concerns are answered. Patient and family member verbalized understanding and agreed with the plan of care. Hemodynamically stable on discharge. Departure Diagnosis: Primary Impression: Acute bronchitis Condition: Stable Additional Instructions: Follow-up with PCP in the next 24-48 hours. Come back here in the emergency department for any new symptoms or any worsening of symptoms. All questions and concerns are answered. Patient and family member verbalized understanding and agreed with the plan of care. NINFA ASH Oct 08, 2017 01:35
[2017-10-08 01:50] LABS: BASOPHILS % 0.4 % (0.0-2.0); EOSINOPHILS # 0.3 10^3/ul (0.0-0.5); EOSINOPHILS % 2.4 % (0.0-7.0); HEMOGLOBIN 14.2 g/dl (12.0-16.0); LYMPHOCYTES # 3.6 10^3/ul (0.8-2.9); LYMPHOCYTES % 33.2 % (18.0-55.0); MEAN CORPUSCULAR HGB CONC 34.6 g/dl (32.0-37.0); MEAN CORPUSCULAR VOLUME 83.8 fl (72.0-104.0); MEAN PLATELET VOLUME 10.8 fl (7.4-10.4); MONOCYTE # 0.8 10^3/ul (0.3-0.9); MONOCYTES % 7.1 % (0.0-13.0); NEUTROPHIL # 6.1 10^3/ul (1.6-7.5); NEUTROPHILS % 56.6 % (30.0-74.0); PLATELET COUNT 257 10^3/UL (140-415); RED BLOOD COUNT 4.89 10^6/ul (4.20-5.40); WHITE BLOOD COUNT 10.8 10^3/ul (4.8-10.8)
[2017-10-08 01:57] LABS: ADD UMIC YES; UR ASCORBIC ACID NEGATIVE (NEGATIVE); UR BACTERIA MODERATE /HPF (NONE SEEN); UR BILIRUBIN (Dip) NEGATIVE (NEGATIVE); UR BLOOD (Dip) 3+ mg/dL (NEGATIVE); UR CLARITY SLIGHTLY CLOUDY (CLEAR); UR COLOR YELLOW (YELLOW); UR GLUCOSE (Dip) NEGATIVE (NEGATIVE); UR KETONES (Dip) NEGATIVE (NEGATIVE); UR LEUKOCYTE ESTERASE (Dip) TRACE Leu/ul (NEGATIVE); UR NITRITE (Dip) NEGATIVE (NEGATIVE); UR RBC 2 /HPF (0-5); UR SPECIFIC GRAVITY (Dip) 1.019 (1.003-1.030); UR SQUAMOUS EPITHELIAL CELL MODERATE /HPF (FEW); UR TOTAL PROTEIN (Dip) NEGATIVE (NEGATIVE); UR UROBILINOGEN (Dip) NEGATIVE (NEGATIVE)
[2017-10-08 02:13] LABS: ALBUMIN 4.1 g/dl (3.3-4.9); ALBUMIN/GLOBULIN RATIO 1.07; BILIRUBIN,INDIRECT 0.2 mg/dl (0-1.1); BILIRUBIN,TOTAL 0.2 mg/dl (0.2-1.3); CALCIUM 9.4 mg/dl (8.4-10.2); CREATININE 0.65 mg/dl (0.44-1.00); TOTAL PROTEIN 7.9 g/dl (6.1-8.1)
--- NOTE | 2017-10-08 02:14 | RADRPT ---
PROCEDURE: XR Chest. CLINICAL INDICATION: chest pain TECHNIQUE: PA and Lateral views of the chest were obtained. COMPARISON: CR CHEST 01/16/2017; CR CHEST 01/18/2015; CR CHEST 04/18/2013 FINDINGS: The cardiomediastinal silhouette is within normal limits. The lungs are clear. No signs of pleural f luid or pneumothorax are seen. The osseous structures and soft tissues are unremarkable. IMPRESSION: No evidence for active cardiopulmonary disease. RPTAT: [facility] Physician Vidal Date Time Electronically viewed and signed by Orlando Schroeder Physician on 10/08/2017 02:13 RR/
--- NOTE | 2017-10-08 02:39 | RADRPT ---
PROCEDURE: US Abdomen. CLINICAL INDICATION: right upper abdominal tenderness TECHNIQUE: Multiple real-time images were acquired of the patient's abdomen and retroperitoneum ut ilizing a high resolution transducer. COMPARISON: US ABDOMEN 04/20/2017 FINDINGS: The liver demonstrates normal echogenicity and size and no focal lesions are seen. No gallstones ar e identified within the gallbladder. There is no pericholecystic fluid or gallbladder wall thickeni ng. No intra or extrahepatic biliary dilatation is seen. The common bile duct measures 3.8 mm in ma ximal dimension. The visualized portions of the pancreas are unremarkable. No free fluid is identi fied. The right kidney demonstrates normal echogenicity and morphology. The right kidney measures 11.15 c m in long dimension. There is no dilatation of the pelvicaliceal system. There are no perinephric fluid collections. There are no areas of increased echogenicity to suggest nephrolithiasis. IMPRESSION: Unremarkable abdominal ultrasound. RPTAT: [facility] Physician Vidal Date Time Electronically viewed and signed by Physician Vidal on 10/08/2017 02:39 RR/
[2017-10-08] MEDS ORDERED: SULF1TAB31 PO (03:38)
[2017-10-08] MEDS ORDERED: PRED20TA PO (03:38)
[2017-10-08] MEDS ORDERED: ALBU8.5H3 INH (03:38)
[2017-10-08] MEDS ORDERED: ACET500C5 PO (03:38)
[2017-10-08] MEDS ORDERED: FAMO-96 PO (03:39)
== END 2017-10-08 03:45 | disposition home or self-care (01) ==
LOC: FTE 23:55
DX: J20.9 Acute bronchitis, unspecified (principal); J45.909 Unspecified asthma, uncomplicated
CPT/HCPCS: 71020; 76705; 80053; 81001; 82150; 83690; 84703; 85025; Z7502; Z7610

== ENCOUNTER 2018-03-21 22:22 | Emergency (ER) | END 2018-03-22 02:50 | disposition home or self-care (01) ==

== ENCOUNTER → 2018-03-24 | Emergency (ER) | END | disposition home or self-care (01) ==

== ENCOUNTER 2018-10-27 06:55 | Emergency (ER) | END 2018-10-27 07:13 | disposition home or self-care (01) ==

== ENCOUNTER 2019-02-09 08:49 | Emergency (ER) | payer OTHER ==
[~2019-02-09] VITALS: Ht 167.6 cm; Wt 103.0 kg
[~2019-02-09 08:49] MED LIST changes: +ACET500C5 PO; +ALBU18HF INHALATION; +ALBU8.5H8 INH; +AMOX500C2 PO; +BEN50 PO; +BENZ-6 PO; -BENZ100C70 PO; +DICY10CA40 PO; -DICY10CA60 PO; +FAMO-96 PO; +LORA1TAB PO; +PRED20TA PO; +PULM90 INHALATION; +RANI150T35 PO; -RANI150T9 PO; +SULF1TAB31 PO
[2019-02-09 08:51] VITALS: BP 122/69; PULSE 79; RESP 18; Ht 167.6 cm; Wt 103.0 kg
[2019-02-09] MEDS ORDERED: ONDANSETRON (ODT) 4 MG TAB ODT STA (09:20)
[2019-02-09] MEDS ORDERED: ONDA4TAB14 PO (10:03)
--- NOTE | 2019-02-09 10:48 | ERD ---
ER Documentation Chief Complaint Chief Complaint pt bib self with c/o vomiting and feeling sob, hx asthma for a few days HPI 23-year-old female presenting with vomiting and shortness of breath. Patient has a history of asthma however has not felt wheezy. She is been using her inhaler at home. Has had chills and body aches. Denies any abdominal pain. Denies vomiting. Denies chest pain or shortness of breath. Has not use any other medications aside from her inhaler. Denies medical problems. NKDA. Surgical history denies. Social history denies. LNMP January 26. ROS All systems reviewed and are negative except as per history of present illness. Medications Home Meds Active Scripts Ondansetron (Ondansetron Odt) 4 Mg Tab.rapdis, 4 MG PO Q6H PRN for NAUSEA AND/OR VOMITING, #10 TAB Prov:AMARI ARMASC 02/09/19 Amoxicillin* (Amoxicillin*) 500 Mg Cap, 500 MG PO BID for 7 Days, CAP Prov:IRVIN BAJWA PA-C 10/27/18 Lorazepam* (Lorazepam*) 1 Mg Tablet, 1 MG PO Q8, #10 TAB Prov:UMAIR FERGUSONC 03/25/18 Diphenhydramine Hcl* (Benadryl*) 50 Mg Cap, 50 MG PO QHS PRN for INSOMNIA, #30 CAP Prov:UMAIR FERGUSON PA-C 03/25/18 Budesonide* (Pulmicort* Flexhaler) 90 Mcg Aer.pow.ba, 2 PUFF INHALATION BID, #1 EA Prov:LEANDRO,AARTI 03/22/18 Albuterol Sulfate* (Ventolin HFA*) 18 Gm Hfa.aer.ad, 2 PUFF INHALATION Q4H, #1 INHALER Prov:LEANDRO,AARTI 03/22/18 Famotidine* (Pepcid*) 20 Mg Tablet, 20 MG PO DAILY for 30 Days, TAB Prov:PASILABANJAMELAR F 10/08/17 Prednisone* (Prednisone*) 20 Mg Tab, 40 MG PO DAILY for 5 Days, TAB Prov:SARKISILAJAMEL MASONAR F 10/08/17 Albuterol Sulfate* (Proair HFA*) 8.5 Gm Hfa.aer.ad, 2 PUFF INH Q4, #1 INHALER Prov:NINFA ASH 10/08/17 Acetaminophen* (Tylophen*) 500 Mg Capsule, 1 CAP PO Q6H PRN for PAIN AND OR ELEVATED TEMP, #20 CAP Prov:NINFA ASH 10/08/17 Sulfamethoxazole/Trimethoprim* (Bactrim Ds* Tablet) 1 Each Tablet, 1 TAB PO BID for 7 Days, #14 TAB Prov:NINFA ASH 10/08/17 Ondansetron (Ondansetron Odt) 4 Mg Tab.rapdis, 4 MG PO Q8 PRN for NAUSEA AND/OR VOMITING, #30 TAB Prov:GEORGIE WILSON ARMAMENT INSTALLER 04/21/17 Dicyclomine HCl (Dicyclomine HCl) 10 Mg Capsule, 10 MG PO QID, #20 CAP Prov:GEORGIE WILSON ARMAMENT INSTALLER 04/21/17 Ibuprofen* (Motrin*) 600 Mg Tab, 600 MG PO Q6H PRN for PAIN AND OR ELEVATED TEMP, #30 TAB Prov:GEORGIE WILSON ARMAMENT INSTALLER 04/21/17 Acetaminophen* (Tylenol*) 325 Mg Tablet, 650 MG PO Q4H PRN for MILD PAIN LEVEL 1-3, #20 TAB Prov:GRACIELA PACHECO PA-C 01/20/17 Ondansetron (Ondansetron Odt) 4 Mg Tab.rapdis, 4 MG PO Q6H PRN for NAUSEA AND/OR VOMITING, #10 TAB Prov:GRACIELA PACHECO PA-C 01/20/17 Ciprofloxacin Hcl* (Ciprofloxacin Hcl*) 500 Mg Tablet, 500 MG PO BID for 7 Days, TAB Prov:GRACIELA PACHECO PA-C 01/20/17 Benzonatate* (Tessalon Perle*) 100 Mg Capsule, 200 MG PO Q8H PRN for COUGH, #20 CAP 0 Refills Prov:KAMI MCKEON 01/16/17 Hydrocodone-Chlorpheniramine Polis* (Hydrocodone-Chlorpheniramine Polis*) 10- 8MG/5ML Rachael.er.12h, 5 ML PO Q12H PRN for COUGH, #60 ML 0 Refills Prov:KAMI MCKEON 01/16/17 Sucralfate* (Carafate*) 1 Gm Tab, 1 GM PO QID for GASTROINTESTINAL UPSET, #90 TAB 0 Refills Prov:KAMI MCKEON 01/16/17 Ondansetron Hcl* (Zofran*) 4 Mg Tablet, 4 MG PO Q6H for NAUSEA AND/OR VOMITING, #30 TAB 0 Refills Prov:KAMI MCKEON 01/16/17 Pantoprazole* (Protonix*) 40 Mg Tablet.dr, 40 MG PO DAILY, #30 TAB 0 Refills Prov:KAMI MCKEON 01/16/17 Ibuprofen* (Motrin*) 600 Mg Tab, 600 MG PO Q6H PRN for PAIN AND OR ELEVATED TEMP, #30 TAB Prov:GEORGIE WILSON NP 06/29/16 Cephalexin* (Keflex*) 500 Mg Capsule, 500 MG PO QID for 10 Days, CAP Prov:GEORGIE WILSON NP 06/29/16 Sulfamethoxazole-Trimethoprim* (Bactrim* DS) 800-160 Mg Tab, 1 TAB PO BID for 10 Days, TAB Prov:GEORGIE WILSON NP 06/29/16 Alprazolam* (Xanax*) 1 Mg Tab, 1 MG PO Q8H PRN for ANXIETY, #10 TAB Prov:GEORGIE WILSON NP 05/20/16 Sucralfate (Carafate) 1 G Tablet, 1 GM PO QID, #60 TAB Prov:UMAIR MACIEL 09/22/15 Ranitidine Hcl* (Zantac*) 150 Mg Tablet, 150 MG PO BID PRN for GASTROINTESTINAL UPSET, #30 TAB Prov:UMAIR MACIEL 09/22/15 Reported Medications [mom denies meds & allergies] No Conflict Check 12/29/13 [None] No Conflict Check 03/05/13 [No Meds Taken] No Conflict Check 02/14/12 Allergies Allergies: Coded Allergies: No Known Allergy (Unverified , 03/22/18) PMhx/Soc History of Surgery: No Anesthesia Reaction: No Hx Neurological Disorder: No Hx Respiratory Disorders: No Hx Cardiac Disorders: No Hx Psychiatric Problems: No Hx Miscellaneous Medical Probl: No Hx Alcohol Use: No Hx Substance Use: No Hx Tobacco Use: No Smoking Status: Never smoker FmHx Family History: No diabetes, No coronary disease, No other Physical Exam Vitals Vital Signs Date Temp Pulse Resp B/P (MAP) Pulse Ox O2 O2 Flow FiO2 Time Delivery Rate 02/09/19 98.3 79 18 122/69 98 08:51 (86) Physical Exam GENERAL: The patient is well-appearing, well-nourished, in no acute distress HEENT: Atraumatic. Conjunctivae are pink. Pupils equal, round, and reactive to light. There is no scleral icterus. Tympanic membranes clear bilaterally. Oropharynx clear. NECK: C-spine is soft and supple. There is no meningismus. There is no cervical lymphadenopathy. CHEST: Clear to auscultation bilaterally. There are no rales, wheezes or rhonchi. HEART: Regular rate and rhythm. No murmurs, clicks, rubs or gallops. ABDOMEN:Soft, nontender and nondistended. Good bowel sounds. No rebound or guarding. No gross peritonitis. No gross organomegaly or masses. Results 24 hrs Laboratory Tests Test 02/09/19 09:39 02/09/19 09:40 Bedside Urine pH (LAB) 8.5 Bedside Urine Protein (LAB) Negative Bedside Urine Glucose (UA) Negative Bedside Urine Ketones (LAB) Negative Bedside Urine Blood Negative Bedside Urine Nitrite (LAB) Negative Bedside Urine Leukocyte Esterase (L Negative POC Beta HCG, Qualitative NEGATIVE Current Medications Medications Dose Sig/Anu Start Time Status Last (Trade) Ordered Route PRN Stop Time Admin Dose Reason Admin Ondansetron 4 mg ONCE STAT 02/09/19 DC 02/09/19 HCl (Zofran ODT 09:20 09:36 Odt) 02/09/19 09:21 Procedures/MDM ER course: Zofran given ED. Urine negative. MDM: 23-year-old female presenting with viral syndrome. Patient's breath sounds are within normal limits. I have low suspicion for pneumonia. I have low suspicion for respiratory distress or hypoxia. I have low suspicion for asthma exacerbation. Exam is non-concerning. Patient is discharged stricter precautions and told to follow-up with primary care within 1-2 days for close evaluation. Patient is told if symptoms change or worsen to return immediately to the ER. All questions answered at discharge Departure Diagnosis: Primary Impression: Vomiting Condition: Stable Patient Instructions: Vomiting (6Y-Adult) Referrals: [facility] YOU HAVE RECEIVED A MEDICAL SCREENING EXAM AND THE RESULTS INDICATE THAT YOU DO NOT HAVE A CONDITION THAT REQUIRES URGENT TREATMENT IN THE EMERGENCY DEPARTMENT. FURTHER EVALUATION AND TREATMENT OF YOUR CONDITION CAN WAIT UNTIL YOU ARE SEEN IN YOUR DOCTORS OFFICE WITHIN THE NEXT 1-2 DAYS. IT IS YOUR RESPONSIBILITY TO MAKE AN APPOINTMENT FOR FOLOW-UP CARE. IF YOU HAVE A PRIMARY DOCTOR --you should call your primary doctor and schedule an appointment IF YOU DO NOT HAVE A PRIMARY DOCTOR YOU CAN CALL OUR PHYSICIAN REFERRAL HOTLINE AT IF YOU CAN NOT AFFORD TO SEE A PHYSICIAN YOU CAN CHOSE FROM THE FOLLOWING [facility] [address] [facility] [address] [facility] [address] [facility] [address] [facility] [address] [address] [facility] [facility]. [address] Additional Instructions: FOLLOW UP WITH YOUR PRIMARY CARE PHYSICIAN TOMORROW.Return to this facility if you are not improving as expected. AMARI ARMAS PA-C Feb 09, 2019 10:48
== END 2019-02-09 10:36 | disposition home or self-care (01) ==
LOC: FTE 08:49
DX: B34.9 Viral infection, unspecified (principal); J45.909 Unspecified asthma, uncomplicated
CPT/HCPCS: 81003; 81025; Z7502; Z7610; 99283

== ENCOUNTER 2019-04-09 19:27 | Emergency (ER) | payer OTHER ==
[~2019-04-09] VITALS: Ht 167.6 cm; Wt 113.3 kg
[2019-04-09 19:33] VITALS: Ht 167.6 cm; Wt 113.3 kg
[2019-04-09] MEDS ORDERED: IBUPROFEN 600 MG TAB PO ONE (22:00)
[2019-04-09] MEDS ORDERED: BACI28.34 TOP (23:49)
[2019-04-10 00:05] VITALS: BP 151/75; PULSE 80; RESP 20
--- NOTE | 2019-04-12 14:25 | ERD ---
ER Documentation Chief Complaint Chief Complaint PAINFUL LUMPS ON L BREAST X'S 1 MONTH HPI 23-year-old female with no significant past medical history presenting to the emergency department complaining of intermittent, worsening left breast pain for the past 1 month. She denies ever having this pain in the past. She reports feeling lumps in her breast around the 9 o'clock position. She also reports rash to the left breast for the past 2 days. She denies any fevers, chills, abdominal pain, or other symptoms at this time. She is taken no medication for relief of symptoms. She is not currently breast-feeding. ROS All systems reviewed and are negative except as per history of present illness. Medications Home Meds Active Scripts Bacitracin* (Bacitracin Zinc Oint*) 28.35 Gm Oint, 1 APPLIC TOP BID, #1 TUB APPLI TO Prov:UMAIR FERGUSON PA-C 04/09/19 Ondansetron (Ondansetron Odt) 4 Mg Tab.rapdis, 4 MG PO Q6H PRN for NAUSEA AND/OR VOMITING, #10 TAB Prov:AMARI ARMAS PA-C 02/09/19 Amoxicillin* (Amoxicillin*) 500 Mg Cap, 500 MG PO BID for 7 Days, CAP Prov:IRVIN BAJWA PA-C 10/27/18 Lorazepam* (Lorazepam*) 1 Mg Tablet, 1 MG PO Q8, #10 TAB Prov:UMAIR FERGUSON PA-C 03/25/18 Diphenhydramine Hcl* (Benadryl*) 50 Mg Cap, 50 MG PO QHS PRN for INSOMNIA, #30 CAP Prov:UMAIR FERGUSON PA-C 03/25/18 Budesonide* (Pulmicort* Flexhaler) 90 Mcg Aer.pow.ba, 2 PUFF INHALATION BID, #1 EA Prov:LEANDRO,AARTI 03/22/18 Albuterol Sulfate* (Ventolin HFA*) 18 Gm Hfa.aer.ad, 2 PUFF INHALATION Q4H, #1 INHALER Prov:LEANDRO,AARTI 03/22/18 Famotidine* (Pepcid*) 20 Mg Tablet, 20 MG PO DAILY for 30 Days, TAB Prov:NINFA ASH 10/08/17 Prednisone* (Prednisone*) 20 Mg Tab, 40 MG PO DAILY for 5 Days, TAB Prov:NINFA ASH 10/08/17 Albuterol Sulfate* (Proair HFA*) 8.5 Gm Hfa.aer.ad, 2 PUFF INH Q4, #1 INHALER Prov:NINFA ASH 10/08/17 Acetaminophen* (Tylophen*) 500 Mg Capsule, 1 CAP PO Q6H PRN for PAIN AND OR ELEVATED TEMP, #20 CAP Prov:NINFA ASH 10/08/17 Sulfamethoxazole/Trimethoprim* (Bactrim Ds* Tablet) 1 Each Tablet, 1 TAB PO BID for 7 Days, #14 TAB Prov:NINFA ASH 10/08/17 Ondansetron (Ondansetron Odt) 4 Mg Tab.rapdis, 4 MG PO Q8 PRN for NAUSEA AND/OR VOMITING, #30 TAB Prov:GEORGIE WILSON NP 04/21/17 Dicyclomine HCl (Dicyclomine HCl) 10 Mg Capsule, 10 MG PO QID, #20 CAP Prov:GEORGIE WILSON UPSETTING MACHINE OPERATOR 04/21/17 Ibuprofen* (Motrin*) 600 Mg Tab, 600 MG PO Q6H PRN for PAIN AND OR ELEVATED TEMP, #30 TAB Prov:GEORGIE WILSON UPSETTING MACHINE OPERATOR 04/21/17 Acetaminophen* (Tylenol*) 325 Mg Tablet, 650 MG PO Q4H PRN for MILD PAIN LEVEL 1-3, #20 TAB Prov:GRACIELA PACHECO PA-C 01/20/17 Ondansetron (Ondansetron Odt) 4 Mg Tab.rapdis, 4 MG PO Q6H PRN for NAUSEA AND/OR VOMITING, #10 TAB Prov:GRACIELA PACHECO PA-C 01/20/17 Ciprofloxacin Hcl* (Ciprofloxacin Hcl*) 500 Mg Tablet, 500 MG PO BID for 7 Days, TAB Prov:GRACIELA PACHECO PA-C 01/20/17 Benzonatate* (Tessalon Perle*) 100 Mg Capsule, 200 MG PO Q8H PRN for COUGH, #20 CAP 0 Refills Prov:KAMI MCKEON 01/16/17 Hydrocodone-Chlorpheniramine Polis* (Hydrocodone-Chlorpheniramine Polis*) 10- 8MG/5ML Rachael.er.12h, 5 ML PO Q12H PRN for COUGH, #60 ML 0 Refills Prov:KAMI MCKEON 01/16/17 Sucralfate* (Carafate*) 1 Gm Tab, 1 GM PO QID for GASTROINTESTINAL UPSET, #90 TAB 0 Refills Prov:KAMI MCKEON 01/16/17 Ondansetron Hcl* (Zofran*) 4 Mg Tablet, 4 MG PO Q6H for NAUSEA AND/OR VOMITING, #30 TAB 0 Refills Prov:KAMI MCKEON 01/16/17 Pantoprazole* (Protonix*) 40 Mg Tablet.dr, 40 MG PO DAILY, #30 TAB 0 Refills Prov:KAMI MCKEON 01/16/17 Ibuprofen* (Motrin*) 600 Mg Tab, 600 MG PO Q6H PRN for PAIN AND OR ELEVATED TEMP, #30 TAB Prov:GEORGIE WILSON NP 06/29/16 Cephalexin* (Keflex*) 500 Mg Capsule, 500 MG PO QID for 10 Days, CAP Prov:GEORGIE WILSON NP 06/29/16 Sulfamethoxazole-Trimethoprim* (Bactrim* DS) 800-160 Mg Tab, 1 TAB PO BID for 10 Days, TAB Prov:GEORGIE WILSON NP 06/29/16 Alprazolam* (Xanax*) 1 Mg Tab, 1 MG PO Q8H PRN for ANXIETY, #10 TAB Prov:GEORGIE WILSON NP 05/20/16 Sucralfate (Carafate) 1 G Tablet, 1 GM PO QID, #60 TAB Prov:UMAIR MACIEL 09/22/15 Ranitidine Hcl* (Zantac*) 150 Mg Tablet, 150 MG PO BID PRN for GASTROINTESTINAL UPSET, #30 TAB Prov:UMAIR MACIEL 09/22/15 Reported Medications [mom denies meds & allergies] No Conflict Check 12/29/13 [None] No Conflict Check 03/05/13 [No Meds Taken] No Conflict Check 02/14/12 Allergies Allergies: Coded Allergies: No Known Allergy (Unverified , 03/22/18) PMhx/Soc Medical and Surgical Hx: pt denies Medical Hx History of Surgery: No Anesthesia Reaction: No Hx Neurological Disorder: No Hx Respiratory Disorders: No Hx Cardiac Disorders: No Hx Psychiatric Problems: No Hx Miscellaneous Medical Probl: No Hx Alcohol Use: No Hx Substance Use: No Hx Tobacco Use: No Smoking Status: Never smoker FmHx Family History: No diabetes Physical Exam Vitals Vital Signs Date Temp Pulse Resp B/P (MAP) Pulse Ox O2 O2 Flow FiO2 Time Delivery Rate 04/10/19 98.1 80 20 151/75 99 Room Air 00:05 (100) 04/09/19 99.0 86 18 154/75 97 19:33 (101) Physical Exam Const: No acute distress Head: Atraumatic Eyes: Normal Conjunctiva ENT: Normal External Ears, Nose and Mouth. Neck: Full range of motion. No meningismus. Resp: Clear to auscultation bilaterally Cardio: Regular rate and rhythm, no murmurs Breast: Palpation of the left breast with female RN senior escrow officer present reveals to small movable lumps noted at the 9 o'clock position. There is a macular papular follicular type rash noted to the left breast. There is no nipple discharge. No erythema or warmth of the breast. Skin: No petechiae or rashes Back: No midline or flank tenderness Ext: No cyanosis, or edema Neur: Awake and alert Psych: Normal Mood and Affect Results 24 hrs Current Medications Medications Dose Sig/Anu Start Time Status Last (Trade) Ordered Route PRN Stop Time Admin Dose Reason Admin Ibuprofen 600 mg ONCE ONCE 04/09/19 DC 04/09/19 (Motrin) PO 22:00 21:57 04/09/19 22:01 [place] [id number] Radiology Main Line: [phone] DIAGNOSTIC IMAGING REPORT Patient: RAMILA PANDEY : 1995 Age: 23 Sex: F MR #: [id number] DOS: 04/09/19 0000 Ordering MD: UMAIR FERGUSON PA-C Location: [facility] Room/Bed: PROCEDURE: Left breast ultrasound CLINICAL INDICATION: Left breast pain TECHNIQUE: Sonographic imaging of the left breast was obtained. COMPARISON: None available FINDINGS: No mass or fluid collection is identified in the left breast. No acute inflammatory changes. No skin thickening. A few slightly prominent ducts are noted, which is nonspecific finding. Remaining soft tissues are unremarkable. IMPRESSION: No mass or fluid collection identified in the left breast. Few, slightly prominent ducts, with is nonspecific. Recommend correlation with nipple discharge or recent . RPTAT:HCLE irvin Joshua Physician Date Time Electronically viewed and signed by irvin Joshua Physician on 04/09/2019 23:38 cE/ CC: UMAIR FERGUSON PA-C [phone] Procedures/MDM 23-year-old female resenting to the emergency department with signs and symptoms most consistent with left breast pain of unclear etiology as well as a folliculitis to the chest, most notable in the left breast. Ultrasound of the left breast showed: No mass or fluid collection identified in the left breast. Few, slightly prominent ducts, with is nonspecific. Recommend correlation with nipple discharge or recent . Full report interpreted by the radiologist may be viewed above. There is no evidence of mastitis. Patient is nontoxic and afebrile and well-appearing. She will be given a prescription treat her symptoms as an outpatient. She was advised to follow-up with her primary care physician and [facility] physician and have a mammogram completed as soon as possible. She was advised to return to the department immediately for any new or worsening or concerning symptoms. The patient was in agreement with the diagnosis, plan, need for follow-up, return precautions. No evidence of life-threatening or emergent pathology at time of discharge. Departure Diagnosis: Primary Impression: Breast pain, left Additional Impression: Folliculitis Condition: Fair Patient Instructions: Breast Self-Exam (BSE) Additional Instructions: Call your primary care doctor TOMORROW for an appointment during the next 1-2 days.See the doctor sooner or return here if your condition worsens before your appointment time. UMAIR FERGUSON PA-C April 12, 2019 14:25
== END 2019-04-09 23:50 | disposition home or self-care (01) ==
LOC: FTE 19:27
DX: N64.4 Mastodynia (principal); L73.9 Follicular disorder, unspecified
CPT/HCPCS: 76642; Z7502; Z7610

== ENCOUNTER 2019-05-28 20:48 | Emergency (ER) | payer OTHER ==
[~2019-05-28] VITALS: Ht 167.6 cm; Wt 100.0 kg
[~2019-05-28 20:48] MED LIST changes: +BACI28.34 TOP
[2019-05-28 21:02] VITALS: Ht 167.6 cm; Wt 100.0 kg
[2019-05-28] MEDS ORDERED: ACETAMINOPHEN 500 MG TAB PO ONE (22:30)
[2019-05-28] MEDS ORDERED: SOD CHLORIDE 0.9% 100 ML ONE (23:38)
[2019-05-28] MEDS ORDERED: IOHEXOL 300MG/ML 150 ML BTL ONE (23:38)
[2019-05-29] MEDS ORDERED: NAPR-985 PO (00:50)
[2019-05-29] MEDS ORDERED: CYCL10TA7 PO (00:50)
[2019-05-29 00:56] VITALS: BP 122/76; PULSE 78; RESP 16
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
== END 2019-05-29 00:57 | disposition home or self-care (01) ==
LOC: FTE 20:48
DX: R51 Headache (principal); M79.661 Pain in right lower leg; M79.621 Pain in right upper arm; M79.622 Pain in left upper arm; M79.662 Pain in left lower leg; R07.9 Chest pain, unspecified
CPT/HCPCS: 36415; 70450; 71260; 72125; 73030; 73080; 73110; 74177; 80053; 81025; 85025; 85610; 85730; Q9967; Z7502; Z7610